=== PATIENT | female | born 2005 | race Two or more races ===

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

== ENCOUNTER → 2024-01-16 15:10 | Outpatient (BNVA) | payer MEDICAID, SELFPAY | PROVIDERS: PCP Nurse Practitioner Family; Visit Provider Nurse Practitioner Family | DX: H20.10 Chronic iridocyclitis, unspecified eye (principal) | CPT/HCPCS: 81000 ==

== ENCOUNTER → 2024-09-03 13:27 | Outpatient (BNVA) | payer MEDICAID, SELFPAY | PROVIDERS: PCP Nurse Practitioner Family; Visit Provider Nurse Practitioner Family | DX: N92.6 Irregular menstruation, unspecified (principal) | CPT/HCPCS: 81025 ==

== ENCOUNTER → 2024-11-20 09:35 | Outpatient (BNVA) | payer MEDICAID, SELFPAY | PROVIDERS: PCP Nurse Practitioner Family; Visit Provider Nurse Practitioner Family | DX: N92.6 Irregular menstruation, unspecified (principal) | CPT/HCPCS: 81025 ==

== ENCOUNTER 2024-12-11 15:54 | Emergency (ER) | payer MEDICAID, SELFPAY ==
--- OUTSIDE RECORDS SUMMARY | 2024-12-11 16:00 | XMS_ITS | Clinical Summary ---
Author Organization [facility] [place] Address [address] [place] [id number] Care Team Providers Care Mobile Home Servicer Name Role Phone Unavailable Primary Care Provider Unavailabl e Social History Tobacco Use Types Packs/Day Years Used Date Smoking Tobacco: Never Assessed Comments Unknown Sex and Gender Information Value Date Recorded Sex Assigned at Not on file Legal Sex Female 8:13 AM CDT Gender Identity Not on file Sexual Orientation Not on file Plan of Treatment Upcoming Encounters Date Type Department Care Team (Late st Contact Info) Description 12/22/2024 10:30 AM CDT Initial [facility] [address] [place] [address] 01/01/2025 8:00 AM CDT Initial [facility] [address] [place] [address] Desire Muñiz MD [address] [place] [id number] Health Maintenance Due Date Last Done Comments CHLAMYDIA SCREENING (ANNUAL) 11-24 YEARS 08/28/2015 HPV VACCINES (1 - 3-dose series) 08/28/2019 DTAP/TDAP/TD VACCINES (1 - Tdap) 08/28/2023 HEPATITIS B VACCINES (1 of 3 - 19+ 3-dose series) 08/03 Preventative Visit-Managed Medicaid 08/28/2023 INFLUENZA VACCINE (#1) 2025 Insurance [place]ICAID [id number]
[2024-12-11 16:12] VITALS: BP 121/81; PULSE 100; RESP 18; TEMP 36.9; O2SAT 100; BMI 22.8
[2024-12-11 18:07] LABS: Hematocrit 38.6 % (36-47); Hemoglobin 13.00 g/dL (12.4-14.8); Mean Corpuscular HGB Conc 33.7 g/dL (30-55); Mean Corpuscular Hemoglobin 29.5 pg (27-33); Mean Corpuscular Volume 87.7 fl (85-98); Nucleated Red Blood Cells % 0 %; Platelet Count 255 10^3/cmm (157-399); Red Blood Count 4.40 10^6/uL (3.85-5.65); White Blood Count 7.84 10^3/uL (4.5-13.0)
--- NOTE | 2024-12-11 18:31 | W.ED.ABDPA2 ---
HPI - Abdominal Pain General: Chief Complaint: Abdominal Pain Stated Complaint: abd pain 9 weeks Time Seen by Provider: 12/11/24 18:06 History of Present Illness: Patient is a pleasant 19-year-old female presented to ED with low-lying bilateral suprapubic pain. She does not have any flank pain. This started this morning. No history of renal colic. LMP 10/05/2024, patient states she is 9 weeks . Single sexual partner. Last intercourse: 2 days ago Associated Symptoms: Denies chills, fever(s), nausea and vomiting Related Data Previous Rx's ?Medication ?Instructions ?Recorded tiotropium bromide 18 mcg capsule 1 cap inhalation DAILY #60 08/27/23 with inhalation device (Spiriva inhalations with HandiHaler) fluticasone 500 mcg-salmeterol 50 1 inh inhalation ONCE #60 ea 11/06/23 mcg/dose blistr powdr for inhalation (Advair Diskus) albuterol sulfate 2.5 mg/3 mL See Rx Instructions .Route 05/09/24 (0.083 %) solution for nebulization .COMPLEX #180 mL albuterol sulfate 90 mcg/actuation See Rx Instructions .Route 06/16/24 aerosol inhaler (Ventolin HFA) .COMPLEX #36 grams cetirizine 10 mg tablet (Zyrtec) 10 mg PO DAILY PRN allergy 10/13/24 symptoms #90 tabs cefdinir 300 mg capsule 300 mg PO BID 10 days #20 caps 12/11/24 Allergies Allergy/AdvReac Type Severity Reaction Status Date / Time No Known Allergies Allergy Verified 11/20/24 09:25 Review of Systems General: Reports: 10 or more systems reviewed and unremarkable except in HPI and below Const: Denies: fever(s) or chills Eyes: Denies: change in vision or blurry vision ENMT: Denies: throat pain or nasal obstruction Card: Denies: chest pain or palpitations Resp: Denies: dyspnea or non-productive cough GI: Reports: abdominal pain (suprapubic); Denies: nausea or vomiting : Reports: difficulty voiding; Denies: flank pain, vaginal odor or vaginal discharge Musc: Denies: neck pain or back pain Skin/Breast: Denies: rash or pruritus Neuro: Denies: headache(s) or numbness in extremities Psych: Denies: anxiety or depression [facility] ED PFSH: Medical History (Updated 12/11/24 @ 19:27 by ISABEL Romo) History of recurrent UTIs Asthma Mild persistent asthma, uncomplicated Surgical History No pertinent past surgical history Social History Smoking and tobacco/nicotine status: never used tobacco/nicotine Second hand smoke exposure: No Alcohol intake: never Substance/Drug Use: never Current occupation: 9th grade at [employer] Current gender identity: Female Special gary needs: No Agree to transfusion: Yes Physical Exam Const: COMMON NORMALS: no acute distress, average body habitus and patient oriented x3 HENMT: COMMON NORMALS: normocephalic and atraumatic HEAD & SCALP: normocephalic and atraumatic Neck/C-Spine: COMMON NORMALS: full ROM and no lymphadenopathy Chest: COMMONS NORMALS: normal inspection of the chest and normal palpation of entire chest wall Resp: COMMON NORMALS: normal respiratory effort and clear to auscultation bilaterally AUSCULTATION: clear to auscultation bilaterally Cardio: COMMON NORMALS: regular rate and regular rhythm RATE: regular rate RHYTHM: regular rhythm GI: COMMON NORMALS: Soft to palpation PALPATION: Yes Soft to palpation and Yes Tenderness to palpation present (GI) (suprapubic) : COMMON NORMALS: Yes no CVA tenderness BLADDER/KIDNEY EXAM: Yes no CVA tenderness Back/Pelvis: COMMON NORMALS: no CVA tenderness Extremity: COMMON NORMALS: normal to inspection, full ROM and capillary refill normal Neuro: COMMON NORMALS: patient oriented x3 Psych: COMMON NORMALS: mental status grossly normal and Normal thought process present THOUGHT PROCESS: Normal thought process present Course Vital Signs: Vital signs: Vital Signs Temperature 98.8 F 12/11/24 19:43 Pulse Rate 93 12/11/24 22:07 Respiratory Rate 16 12/11/24 22:07 Blood Pressure 128/71 12/11/24 22:07 Pulse Oximetry 97 12/11/24 22:07 Oxygen Delivery Me thod Room Air 12/11/24 22:07 MDM - Abdominal Pain Medical Decision Making Patient is a 19-year-old female with LMP 10/05/2024, [facility], not yet established with OB, awaiting scheduled appointment, presents with sudden onset of low-lying cramping pain. Will check routine labs, Rh factor, UA, and most likely after hCG will proceed with ultrasonography given her pain. Lab Data 12/11/24 17:53 12/11/24 17:53 Labs/Radiology: Radiology Impressions Ultrasound 12/11/24 18:40 IMPRESSION: 1. Intrauterine gestational sac and yolk sac. However, no pole at this time. These findings are compatible with an early intrauterine . I can not comment on viability at this time. 2. Negative exam for ovarian torsion. Laboratory Results WBC 7.84 10^3/uL (4.5-13.0) 12/11/24 17:53 RBC 4.40 10^6/uL (3.85-5.65) 12/11/24 17:53 Hgb 13.00 g/dL (12.4-14.8) 12/11/24 17:53 Hct 38.6 % (36-47) 12/11/24 17:53 MCV 87.7 fl (85-98) 12/11/24 17:53 MCH 29.5 pg (27-33) 12/11/24 17:53 MCHC 33.7 g/dL (30-55) 12/11/24 17:53 RDW 11.9 % (12.1-15.1) L 12/11/24 17:53 Plt Count 255 10^3/cmm (157-399) 12/11/24 17:53 MPV 9.9 fL (7.4-10.4) 12/11/24 17:53 Neut % (Auto) 57.7 % 12/11/24 17:53 Lymph % (Auto) 29.5 % 12/11/24 17:53 Dale % (Auto) 7.9 % 12/11/24 17:53 Eos % (Auto) 4.0 % 12/11/24 17:53 Baso % (Auto) 0.8 % 12/11/24 17:53 Neut # (Auto) 4.53 10^3/uL (1.8-8.0) 12/11/24 17:53 Lymph # (Auto) 2.3 10^3/uL (1.5-6.5) 12/11/24 17:53 Dale # (Auto) 0.6 10^3/uL (0.2-0.9) 12/11/24 17:53 Eos # (Auto) 0.3 10^3/uL (0.0-0.8) 12/11/24 17:53 Baso # (Auto) 0.1 10^3/uL (0.0-0.1) 12/11/24 17:53 Nucleated RBC % (auto) 0 % 12/11/24 17:53 Nucleated RBCs # 0.0 /100WBC 12/11/24 17:53 Sodium 138 mmol/L (136-145) 12/11/24 17:53 Potassium 3.6 mmol/L (3.5-5.1) 12/11/24 17:53 Chloride 103 mmol/L (98-107) 12/11/24 17:53 Carbon Dioxide 23 mmol/L (22-29) 12/11/24 17:53 Anion Gap 15.6 (5-19) 12/11/24 17:53 BUN 12 mg/dL (6-20) 12/11/24 17:53 Creatinine 0.6 mg/dL (0.5-0.9) 12/11/24 17:53 GFR Calculation 127.5 mL/min (90-130) 12/11/24 17:53 Glucose 65 mg/dL (65-115) 12/11/24 17:53 Calculated Osmolality 284 mOsm/kg (285-295) L 12/11/24 17:53 Calcium 9.2 mg/dL (8.5-10.5) 12/11/24 17:53 Total Bilirubin 0.4 mg/dL (0.15-1.2) 12/11/24 17:53 AST 19 U/L (0-32) 12/11/24 17:53 ALT 22 U/L (0-33) 12/11/24 17:53 Alkaline Phosphatase 53 U/L (35-105) 12/11/24 17:53 Total Protein 7.6 g/dL (6.6-8.7) 12/11/24 17:53 Albumin 4.6 g/dL (3.5-5.2) 12/11/24 17:53 Globulin 3.0 g/dL (1.3-4.6) 12/11/24 17:53 Ser , Semi-Qnt 4346.00 mIU/mL 12/11/24 17:53 Urine Color Yellow (Yellow) 12/11/24 17:44 Urine Appearance Clear (CLEAR) 12/11/24 17:44 Urine pH 6.5 (5-7) 12/11/24 17:44 Ur Specific Centre 1.029 (1.005-1.030) 12/11/24 17:44 Urine Protein Negative (Negative) 12/11/24 17:44 Urine Glucose (UA) Negative (Normal) 12/11/24 17:44 Urine Ketones Trace (Negative) 12/11/24 17:44 Urine Blood Negative (Negative) 12/11/24 17:44 Urine Nitrate Negative (Negative) 12/11/24 17:44 Urine Bilirubin Negative (Negative) 12/11/24 17:44 Urine Urobilinogen 1.0 mg/dL (Negative) 12/11/24 17:44 Ur Leukocyte Esterase Negative (Negative) 12/11/24 17:44 Urine RBC 0-2 /hpf (0-2) 12/11/24 17:44 Urine WBC 0-5 /hpf (0-5) 12/11/24 17:44 Ur Squamous Epith Cells 0-5 /hpf (0-5) 12/11/24 17:44 Amorphous Sediment Not Reportable 12/11/24 17:44 Urine Bacteria 2+ /hpf (NONE) H 12/11/24 17:44 Hyaline Casts 3.30 /lpf 12/11/24 17:44 Blood Type A Positive 12/11/24 18:50 Rho(D) Type Rh positive 12/11/24 18:50 Antibody Screen Negative 12/11/24 18:50 All radiology interpretation(s) finalized by discharge ED provider radiology interpretation(s): no torsion, no fhr Discharge Plan Discharge Patient Disposition: Home Clinical Impression: Bacteriuria during , Suprapubic pain, acute Qualifiers: Weeks of gestation: 9 weeks Qualified Code(s): Z3A.09 - 9 weeks gestation of Condition: Stable Prescriptions: New cefdinir 300 mg capsule 300 mg PO BID 10 Days Qty: 20 0RF No Action tiotropium bromide [Spiriva with HandiHaler] 18 mcg capsule, w/inhalation device 1 cap inhalation DAILY Qty: 60 3RF Rx Instructions: puncture 1 cap using device; one dose = 2 inhalations fluticasone propion-salmeterol [Advair Diskus] 500-50 mcg/dose blister with device 1 inh inhalation ONCE Qty: 60 2RF cetirizine [Zyrtec] 10 mg tablet 10 mg PO DAILY PRN (Reason: allergy symptoms) Qty: 90 3RF albuterol sulfate 2.5 mg /3 mL (0.083 %) solution for nebulization See Rx Instructions .ROUTE .COMPLEX Qty: 180 3RF Dose Instruction: INHALE ONE Vial VIA NEBULIZER FOUR TIMES DAILY NEEDED FOR SHORTNESS OF BREATH OR WHEEZING Rx Instructions: INHALE ONE Vial VIA NEBULIZER FOUR TIMES DAILY NEEDED FOR SHORTNESS OF BREATH OR WHEEZING albuterol sulfate [Ventolin HFA] 90 mcg/actuation HFA aerosol inhaler See Rx Instructions .ROUTE .COMPLEX Qty: 36 3RF Dose Instruction: INHALE TWO PUFFS BY MOUTH EVERY 6 HOURS NEEDED FOR SHORTNESS OF BREATH Rx Instructions: INHALE TWO PUFFS BY MOUTH EVERY 6 HOURS NEEDED FOR SHORTNESS OF BREATH Discharge Orders: Discharge ED (Routine); Ordered 12/11/24 Ordered By: Wendy Trevino Referrals: Sridevi Layton FNP [Primary Care Provider, Family Practice] Discharge Diet: Usual diet Discharge Activity: Resume usual activity Patient Instructions: Abdominal Pain (ED), Patient Portal & [facility] Instructions Activity Restrictions/Additional Instructions: Pelvic rest/no sex/no tampons Call tomorrow for an appointment to follow-up with your OB in [place] with the pending appointment. You will need a repeat hCG by blood. Your OB will know how to do this and what to order. As we discussed, set your alarm and call in the morning when they are open. You do have to have this done tomorrow from your OB. Drink plenty of fluids Return to ED with worsening pain. Stand Alone Forms: Work/School Release Print Language: Croatian Coding Level of Care Code ED [employer] for Ben Villatoro
[2024-12-11 18:38] LABS: Glucose Urine UA Negative (Normal); Nitrate Urine Negative (Negative); Specific Gravity, Urine 1.029 (1.005-1.030)
[2024-12-11 18:40] LABS: Alanine Aminotransferase 22 U/L (0-33); Albumin Level 4.6 g/dL (3.5-5.2); Alkaline Phosphatase 53 U/L (35-105); Anion Gap 15.6 (5-19); Aspartate Amino Transferase 19 U/L (0-32); Blood Urea Nitrogen 12 mg/dL (6-20); Calcium 9.2 mg/dL (8.5-10.5); Carbon Dioxide 23 mmol/L (22-29); Chloride 103 mmol/L (98-107); Creatinine Clr Calc Pharmacy 124.5241; Globulin 3.0 g/dL (1.3-4.6); Glucose 65 mg/dL (65-115); Osmolality Calculated 284 mOsm/kg (285-295); Potassium 3.6 mmol/L (3.5-5.1); Sodium 138 mmol/L (136-145); Total Protein 7.6 g/dL (6.6-8.7)
--- NOTE | 2024-12-11 18:40 | USR_ITS ---
PROCEDURE INFORMATION: Exam: US First Trimester, Transabdominal and US , Transvaginal Exam date and time: 12/11/2024 8:45 PM Age: 19 years old Clinical indication: complicated by abdominal or pelvic pain; Generalized abdominal pain; First trimester (<14 weeks 0 days); Gestational age or lmp: 5w 3d by today's u/s based on gs size; ; one presenting with bilateral cramping, no vag bleed. ; Additional info: Bilateral abdominal cramping LABS AND CLINICAL REPORTS: Choriogonadotropin in serum (Serum HCG): 4346 mIU/mL Last menstrual period start date: 10/05/2024 Gestational age (Established): 9 w 4 d Estimated due date (Established): 07/12/2025 TECHNIQUE: Imaging protocol: Real-time transabdominal obstetrical ultrasound of the maternal pelvis and a first trimester , less than 14 weeks 0 days, with image documentation. Transvaginal imaging was used for better evaluation of the fetus, adnexa, and/or cervix. COMPARISON: US abdomen complete* [id number] 06/10/2018 10:30 PM FINDINGS: GESTATION: Gestation: Intrauterine gestation is visualized. No pole is visualized. Yolk sac is visualized. Embryo/ cardiac activity (BPM): No pole Extra-embryonic membranes/Placenta: Unremarkable. No subchorionic bleed. Amniotic/Chorionic fluid: Amniotic and extra-amniotic fluid are normal for gestational age. BIOMETRY: Gestational age (AUA): 5 w 3 d Estimated due date (AUA): 08/10/2025 Mean sac diameter: 0.71 cm. EGA (MSD) is 5 w 3 d MATERNAL: Uterus: Uterus measures 7.7 cm x 4.69 cm x 3.92 cm. Cervix: Unremarkable. Endocervical canal is closed. Right ovary/adnexa: Right ovary measures 3.8 cm x 2.8 cm x 2.4 cm. Unilocular right ovarian corpus luteal cyst measures 1.6 cm. Color and spectral Doppler interrogation of the right ovary documents arterial and venous flow. Left ovary/adnexa: Left ovary measures 3 cm x 2.2 cm x 1.9 cm. Color and spectral Doppler interrogation of the left ovary documents arterial and venous flow. Intraperitoneal space: No intraperitoneal free fluid. US/US OB <= 14 weeks fetus [id number] IMPRESSION: 1. Intrauterine gestational sac and yolk sac. However, no pole at this time. These findings are compatible with an early intrauterine . I can not comment on viability at this time. 2. Negative exam for ovarian torsion.
[2024-12-11] MEDS: cefTRIAXone 1,000 MG in water for injection-sterile 2.1 ML 2.1 MG IM (19:39)
[2024-12-11 19:43] VITALS: BP 109/77; PULSE 86; RESP 18; TEMP 37.1; O2SAT 100
[2024-12-11 20:00] VITALS: BP 114/89; PULSE 86; RESP 16; O2SAT 100
[2024-12-11 22:07] VITALS: BP 128/71; PULSE 93; RESP 16; O2SAT 97
== END 2024-12-11 22:15 | disposition home or self-care (01) ==
PROVIDERS: Emergency Medicine; Emergency Provider Physician Assistant; PCP Nurse Practitioner Family
DX: O26.891 Other specified pregnancy related conditions, first trimester (principal); Z3A.09 9 weeks gestation of pregnancy; R82.71 Bacteriuria; R10.9 Unspecified abdominal pain
CPT/HCPCS: 36415; 76801; 80053; 81001; 84702; 85025; 86850; 86900; 87077; 87086; 87186; 96372; 99284; J0696

== ENCOUNTER → 2024-12-12 13:22 | Outpatient (BNVA) | payer MEDICAID, SELFPAY | PROVIDERS: PCP Nurse Practitioner Family; Visit Provider Nurse Practitioner Women's Health | DX: Z3A.09 9 weeks gestation of pregnancy (principal) | CPT/HCPCS: 84702 ==

== ENCOUNTER → 2024-12-15 10:20 | Outpatient (BNVA) | payer MEDICAID, SELFPAY | PROVIDERS: PCP Nurse Practitioner Family; Visit Provider Nurse Practitioner Women's Health | DX: Z3A.09 9 weeks gestation of pregnancy (principal) | CPT/HCPCS: 84702 ==

== ENCOUNTER → 2024-12-17 10:16 | Outpatient (BNVA) | payer MEDICAID, SELFPAY | PROVIDERS: PCP Nurse Practitioner Family; Visit Provider Nurse Practitioner Women's Health | DX: Z36.9 Encounter for antenatal screening, unspecified (principal) | CPT/HCPCS: 76817 ==

== ENCOUNTER → 2025-03-02 14:12 | Outpatient (BNVA) | payer MEDICAID, SELFPAY | PROVIDERS: PCP Nurse Practitioner Family; Visit Provider Internal Medicine | DX: T78.40XA Allergy, unspecified, initial encounter (principal) | CPT/HCPCS: 86003 ==

== ENCOUNTER 2025-03-26 11:12 | Outpatient (CLI) | payer MEDICAID, SELFPAY ==
[2025-03-26 11:28] VITALS: PULSE 93; RESP 18; O2SAT 98
== END 2025-03-26 11:13 | disposition home or self-care (01) ==
LOC: RT 11:13
PROVIDERS: PCP Nurse Practitioner Family; Visit Provider Internal Medicine
DX: J44.9 Chronic obstructive pulmonary disease, unspecified (principal); J98.8 Other specified respiratory disorders
CPT/HCPCS: 94060; 94726; 94729; J7613

== ENCOUNTER → 2025-04-06 12:50 | Outpatient (BNVA) | payer MEDICAID, SELFPAY | PROVIDERS: PCP Nurse Practitioner Family; Visit Provider Nurse Practitioner Family | DX: N93.9 Abnormal uterine and vaginal bleeding, unspecified (principal) | CPT/HCPCS: 80053; 82670; 83002; 84144; 84403; 84443; 85025 ==

== ENCOUNTER → 2025-04-23 07:11 | Outpatient (BNVA) | payer MEDICAID, SELFPAY | PROVIDERS: PCP Nurse Practitioner Family; Visit Provider Registered Nurse Neonatal Intensive Care | DX: R30.0 Dysuria (principal) | CPT/HCPCS: 81000 ==